=== PATIENT | female | born 1970 | race Caucasian/White ===

== ENCOUNTER 2017-05-11 15:41 | Emergency (ER) | payer MEDICAID ==
[~2017-05-11] VITALS: Ht 167.6 cm; Wt 61.2 kg
[~2017-05-11 15:41] MED LIST: BUS10T PO
[2017-05-11 16:53] VITALS: BP 124/64
== END 2017-05-11 17:00 | disposition home or self-care (01) ==
LOC: ER 15:42
DX: M67.432 Ganglion, left wrist (principal); H60.91 Unspecified otitis externa, right ear

== ENCOUNTER 2017-08-21 20:18 | Emergency (ER) | payer MEDICAID ==
[~2017-08-21] VITALS: Ht 167.6 cm; Wt 59.0 kg
[2017-08-21 22:29] LABS: Eosinophils # (auto) 0.2 uL; Lymphocytes # (auto) 2.2 uL; Monocytes # (auto) 0.5 uL; White Blood Cell 6.1 10^3/uL (4.4-10.8)
[2017-08-21 22:31] LABS: Basophils # (auto) 0 uL; Basophils % (auto) 0.7 % (0.0-2.0); Eosinophils % (auto) 3.5 % (0.0-7.0); Hematocrit 33.8 % (36.0-46.0); Hemoglobin 11.5 g/dL (12.2-16.2); Lymphocytes % (auto) 36.3 % (10.0-50.0); Mean Corpuscular Hemoglobin 33.1 pg (28.0-32.0); Mean Corpuscular Hgb Conc. 33.9 g/dL (32.0-36.0); Mean Corpuscular Volume 97.7 fL (80.0-100.0); Mean Platelet Volume 7.6 fL (6.9-10.8); Monocytes % (auto) 7.7 % (0.0-12.0); Neutrophils # (auto) 3.2 uL; Neutrophils % (auto) 51.8 % (37.0-80.0); Nucleated Red Blood Cells % 0.1 %; Platelet Count (auto) 524 10^3/uL (140-450); Red Cell Distribution Width 13.8 % (11.8-14.3)
[2017-08-21 22:39] LABS: Albumin 3.4 g/dL (3.4-5.0); Anion Gap 7 (5-15); Aspartate Aminotransferase 25 U/L (15-37); BUN/Creatinine Ratio 7.1; Blood Urea Nitrogen 7 mg/dL (7-18); Calcium 8.8 mg/dL (8.5-10.1); Carbon Dioxide 21 mmol/L (21-32); Chloride 110 mmol/L (98-107); GFR African American 79 mL/min; GFR Non-African American 65 mL/min; Glucose 65 mg/dL (74-106); Potassium 3.7 mmol/L (3.5-5.1); Sodium 138 mmol/L (136-145)
[2017-08-21 22:43] LABS: Alkaline Phosphatase 115 U/L (45-117); Bilirubin, Total 0.2 mg/dL (0.2-1.0); Total Protein 7.8 g/dL (6.4-8.2)
[2017-08-22] MEDS ORDERED: SODIUM CHLORIDE 0.9% 1,000 ML IV ONE (09:35)
[2017-08-22] MEDS ORDERED: CLINDAMYCIN 600MG IV 50 ML IV ONE (09:45)
[2017-08-22] MEDS ORDERED: KETOROLAC TROMETH 30 MG/ML 1ML VIAL IV ONE (09:45)
[2017-08-22 12:58] VITALS: BP 103/66
== END 2017-08-22 13:29 | disposition home or self-care (01) ==
LOC: ER 20:18
DX: L03.115 Cellulitis of right lower limb (principal); F17.210 Nicotine dependence, cigarettes, uncomplicated; F15.10 Other stimulant abuse, uncomplicated; J44.9 Chronic obstructive pulmonary disease, unspecified; K21.9 Gastro-esophageal reflux disease without esophagitis; Z88.0 Allergy status to penicillin; Z98.51 Tubal ligation status
CPT/HCPCS: 36415; 73600; 80053; 83605; 84484; 85025; 87040; 94761; 96365; 96366; 96375; 99285; J1885; J3490; J7030

== ENCOUNTER 2017-08-28 11:10 | Emergency (ER) | payer MEDICAID ==
[~2017-08-28] VITALS: Ht 167.6 cm; Wt 61.2 kg
[2017-08-28 11:20] VITALS: BP 112/71
== END 2017-08-28 13:32 | disposition home or self-care (01) ==
LOC: ER 11:12
DX: S90.512D Abrasion, left ankle, subsequent encounter (principal); J44.9 Chronic obstructive pulmonary disease, unspecified; K21.9 Gastro-esophageal reflux disease without esophagitis; F17.210 Nicotine dependence, cigarettes, uncomplicated; X58.XXXD Exposure to other specified factors, subsequent encounter

== ENCOUNTER 2017-10-25 15:08 | Emergency (ER) | payer MEDICAID ==
[~2017-10-25] VITALS: Ht 167.6 cm; Wt 61.2 kg
[2017-10-25 19:39] VITALS: BP 126/88
== END 2017-10-25 20:02 | disposition home or self-care (01) ==
LOC: ER 15:08
DX: L03.211 Cellulitis of face (principal); T78.40XA Allergy, unspecified, initial encounter; X58.XXXA Exposure to other specified factors, initial encounter; F17.210 Nicotine dependence, cigarettes, uncomplicated; K21.9 Gastro-esophageal reflux disease without esophagitis; J44.9 Chronic obstructive pulmonary disease, unspecified; Z88.0 Allergy status to penicillin

== ENCOUNTER 2017-10-28 23:31 | Emergency (ER) | payer MEDICAID ==
[~2017-10-28] VITALS: Ht 167.6 cm; Wt 61.2 kg
[2017-10-28 23:52] VITALS: BP 106/64
[2017-10-29] MEDS ORDERED: KETOROLAC TROMETH 60MG/2ML VIAL IM ONE (04:45)
== END 2017-10-29 04:56 | disposition home or self-care (01) ==
LOC: ER 23:31
DX: S33.5XXA Sprain of ligaments of lumbar spine, initial encounter (principal); M54.16 Radiculopathy, lumbar region; X50.0XXA Overexertion from strenuous movement or load, initial encounter; Y93.89 Activity, other specified; Y92.89 Other specified places as the place of occurrence of the external cause; Y99.8 Other external cause status
CPT/HCPCS: 72100; 96372; 99284; J1885

== ENCOUNTER 2017-10-31 13:52 | Emergency (ER) | payer MEDICAID ==
[~2017-10-31] VITALS: Ht 167.6 cm; Wt 61.2 kg
[2017-10-31 17:37] VITALS: BP 119/74
== END 2017-10-31 21:34 | disposition home or self-care (01) ==
LOC: ER 13:52
DX: H10.9 Unspecified conjunctivitis (principal); J44.9 Chronic obstructive pulmonary disease, unspecified; K21.9 Gastro-esophageal reflux disease without esophagitis; F17.210 Nicotine dependence, cigarettes, uncomplicated; F15.10 Other stimulant abuse, uncomplicated; Z98.51 Tubal ligation status; Z88.0 Allergy status to penicillin

== ENCOUNTER 2017-11-07 14:03 | Inpatient (IN) | payer MEDICAID ==
[~2017-11-07] VITALS: Ht 165.1 cm; Wt 66.5 kg
[2017-11-07 15:03] LABS: Albumin 3.3 g/dL (3.4-5.0); Calcium 8.8 mg/dL (8.5-10.1)
[2017-11-07 15:07] LABS: Bilirubin, Total 0.2 mg/dL (0.2-1.0); Potassium 3.7 mmol/L (3.5-5.1); Total Protein 7.2 g/dL (6.4-8.2)
[2017-11-07 15:08] LABS: Basophils # (auto) 0 uL; Eosinophils # (auto) 0 uL; Eosinophils % (auto) 0.2 % (0.0-7.0); Nucleated Red Blood Cells % 0.2 %; White Blood Cell 10.7 10^3/uL (4.4-10.8)
[2017-11-07 15:09] LABS: Basophils % (auto) 0.3 % (0.0-2.0); Hematocrit 36.3 % (36.0-46.0); Hemoglobin 12.1 g/dL (12.2-16.2); Lymphocytes # (auto) 1.9 uL; Lymphocytes % (auto) 17.7 % (10.0-50.0); Mean Corpuscular Hemoglobin 33.5 pg (28.0-32.0); Mean Corpuscular Hgb Conc. 33.5 g/dL (32.0-36.0); Mean Corpuscular Volume 100.1 fL (80.0-100.0); Monocytes # (auto) 0.3 uL; Monocytes % (auto) 3.2 % (0.0-12.0); Neutrophils # (auto) 8.4 uL; Neutrophils % (auto) 78.6 % (37.0-80.0); Platelet Count (auto) 641 10^3/uL (140-450); Red Blood Cells 3.62 10^6/uL (4.0-5.20); Red Cell Distribution Width 14.9 % (11.8-14.3)
[2017-11-07 18:12] LABS: Urine Bacteria NONE SEEN /hpf (None Seen); Urine Blood Negative /uL (Negative); Urine Specific Gravity 1.003 (1.001-1.035); Urine WBC 1 /hpf (0 - 5)
[2017-11-07] MEDS ORDERED: ACETAMINOPHEN 325 MG TAB PO PRN (22:00)
[2017-11-07] MEDS ORDERED: TEMAZEPAM 15 MG CAP PO PRN (22:00)
[2017-11-07] MEDS ORDERED: HYDROcodone-ACET 5/325MG TAB PO PRN (22:00)
[2017-11-07] MEDS ORDERED: MORPHINE SULFATE 4 MG/ML SYR/VIAL IV PRN (22:00)
[2017-11-07] MEDS ORDERED: PANTOPRAZOLE 40 MG/10 ML VIAL IV ONE (22:00)
[2017-11-07] MEDS ORDERED: LEVOFLOXACIN 500MG 100 ML IV ONE (22:00)
[2017-11-07] MEDS ORDERED: SODIUM CHLORIDE 0.9% 1,000 ML IV SCH (22:00)
[2017-11-07] MEDS ORDERED: ONDANSETRON HCL 4 MG/2 ML VIAL IV PRN (22:00)
[2017-11-07] MEDS ORDERED: ALBUTEROL SULF 2.5 MG/0.5ML(0.5%) NEB SOLN NEB PRN (22:00)
[2017-11-07] MEDS ORDERED: SODIUM CHLORIDE 0.9% 500 ML IV ONE (22:00)
[2017-11-07 22:37] VITALS: BP 110/72
[2017-11-07 23:45] VITALS: BP 133/86
[2017-11-08] MEDS ORDERED: OMEP20CA74 PO (01:43)
[2017-11-08] MEDS ORDERED: GABA-339 PO (01:43)
[2017-11-08] MEDS ORDERED: DIPH25CA66 PO (01:44)
[2017-11-08] MEDS ORDERED: BUPR-40 PO (01:44)
[2017-11-08] MEDS ORDERED: LORA-654 PO (01:45)
[2017-11-08] MEDS ORDERED: ONDA4TAB5 PO (01:46)
[2017-11-08] MEDS ORDERED: BUSP5TAB51 PO (01:46)
[2017-11-08] MEDS ORDERED: MONT10TA34 PO (01:47)
[2017-11-08] MEDS ORDERED: IBUP100S11 PO (01:48)
[2017-11-08] MEDS ORDERED: ACET1SOL8 PO (01:48)
[2017-11-08] MEDS ORDERED: ETOD1TAB60 PO (01:49)
[2017-11-08] MEDS ORDERED: PRE5T PO (01:49)
[2017-11-08] MEDS ORDERED: MELA3TAB27 PO (01:50)
[2017-11-08] MEDS ORDERED: METH4TAB7 PO (01:50)
[2017-11-08 05:00] VITALS: BP 119/73
[2017-11-08 06:35] LABS: Basophils # (auto) 0.1 uL; Basophils % (auto) 0.8 % (0.0-2.0); Eosinophils # (auto) 0.2 uL; Hematocrit 35.3 % (36.0-46.0); Lymphocytes # (auto) 4.4 uL; Lymphocytes % (auto) 47.7 % (10.0-50.0); Mean Corpuscular Hemoglobin 33.9 pg (28.0-32.0); Mean Corpuscular Volume 99.8 fL (80.0-100.0); Monocytes # (auto) 0.7 uL; Monocytes % (auto) 7.3 % (0.0-12.0); Neutrophils # (auto) 3.9 uL; Neutrophils % (auto) 42.2 % (37.0-80.0); Nucleated Red Blood Cells % 0.1 %; Platelet Count (auto) 597 10^3/uL (140-450); Red Blood Cells 3.54 10^6/uL (4.0-5.20); Red Cell Distribution Width 14.8 % (11.8-14.3); White Blood Cell 9.2 10^3/uL (4.4-10.8)
[2017-11-08 06:53] LABS: Calcium 8.6 mg/dL (8.5-10.1)
[2017-11-08 06:56] LABS: BUN/Creatinine Ratio 10.3
[2017-11-08 06:58] LABS: Bilirubin, Total 0.3 mg/dL (0.2-1.0); Total Protein 6.7 g/dL (6.4-8.2)
[2017-11-08 08:20] VITALS: BP 119/81
[2017-11-08] MEDS ORDERED: PANTOPRAZOLE 40 MG/10 ML VIAL IV SCH (10:00)
[2017-11-08] MEDS ORDERED: ENOXAPARIN SOD 40 MG/0.4 ML SYRINGE SC SCH (10:00)
[2017-11-08 11:21] VITALS: BP 122/81
[2017-11-08] MEDS ORDERED: LEVOFLOXACIN 500MG 100 ML IV SCH (22:00)
== END 2017-11-08 12:34 | disposition left against medical advice (07) ==
LOC: ER 14:03 → OVERFLOW 14:04 → CENTRAL 23:15
PROVIDERS: ADMIT Nurse Practitioner; ATTEND Internal Medicine
DX: K80.01 Calculus of gallbladder with acute cholecystitis with obstruction (principal); E44.1 Mild protein-calorie malnutrition; D64.9 Anemia, unspecified; F17.210 Nicotine dependence, cigarettes, uncomplicated; F41.9 Anxiety disorder, unspecified; G89.29 Other chronic pain; J44.9 Chronic obstructive pulmonary disease, unspecified; K21.9 Gastro-esophageal reflux disease without esophagitis; Z53.21 Procedure and treatment not carried out due to patient leaving prior to being seen by health care provider; K83.8 Other specified diseases of biliary tract; D47.3 Essential (hemorrhagic) thrombocythemia; G47.00 Insomnia, unspecified; Z79.899 Other long term (current) drug therapy; Z82.49 Family history of ischemic heart disease and other diseases of the circulatory system; Z68.24 Body mass index [BMI] 24.0-24.9, adult; Z88.0 Allergy status to penicillin; E88.09 Other disorders of plasma-protein metabolism, not elsewhere classified
CPT/HCPCS: 36415; 76705; 78226; 80053; 81001; 85025; 87081; 96374; C9113; J1956

== ENCOUNTER 2017-11-30 21:34 | Emergency (ER) | payer MEDICAID ==
[~2017-11-30] VITALS: Ht 167.6 cm; Wt 61.2 kg
[~2017-11-30 21:34] MED LIST changes: +ACET1SOL8 PO; +BUPR-40 PO; -BUS10T PO; +BUSP5TAB51 PO; +DIPH25CA66 PO; +ETOD1TAB60 PO; +GABA-339 PO; +IBUP100S11 PO; +LORA-654 PO; +MELA3TAB27 PO; +METH4TAB7 PO; +MONT10TA34 PO; +OMEP20CA74 PO; +ONDA4TAB5 PO; +PRE5T PO
[2017-12-01] MEDS ORDERED: ONDANSETRON HCL 4 MG/2 ML VIAL IM ONE (02:30)
[2017-12-01] MEDS ORDERED: MORPHINE SULFATE 4 MG/ML SYR/VIAL IM ONE (02:30)
[2017-12-01 03:44] LABS: Urine Bacteria NONE SEEN /hpf (None Seen); Urine Blood Negative /uL (Negative); Urine Specific Gravity 1.002 (1.001-1.035); Urine WBC <1 /hpf (0 - 5)
[2017-12-01 03:56] LABS: Alcohol, Urine < 3.0 mg/dL (0-5); Amphetamine Screen, Urine NEGATIVE (NEGATIVE); Barbiturate Scree,Urine NEGATIVE (NEGATIVE); Benzodiazephine Screen, Urine NEGATIVE (NEGATIVE); Cannabinoid Screen, Urine NEGATIVE (NEGATIVE); Cocaine Screen, Urine NEGATIVE (NEGATIVE); Opiate Scree,Urine NEGATIVE (NEGATIVE); Phencyclidine Screen, Urine NEGATIVE (NEGATIVE)
[2017-12-01 05:23] VITALS: BP 126/83
== END 2017-12-01 05:27 | disposition home or self-care (01) ==
LOC: ER 21:34
DX: S33.5XXA Sprain of ligaments of lumbar spine, initial encounter (principal); M54.16 Radiculopathy, lumbar region; K21.9 Gastro-esophageal reflux disease without esophagitis; J44.9 Chronic obstructive pulmonary disease, unspecified; F17.210 Nicotine dependence, cigarettes, uncomplicated; Z98.51 Tubal ligation status; Z88.0 Allergy status to penicillin; Z79.899 Other long term (current) drug therapy; X58.XXXA Exposure to other specified factors, initial encounter; Y93.89 Activity, other specified; Y92.89 Other specified places as the place of occurrence of the external cause; Y99.8 Other external cause status
CPT/HCPCS: 80307; 81001; 96372; 99284; J2270; J2405

== ENCOUNTER 2018-01-08 02:35 | Emergency (ER) | payer MEDICAID, OTHER ==
[~2018-01-08] VITALS: Ht 167.6 cm; Wt 59.0 kg
[2018-01-08 04:29] LABS: Eosinophils # (auto) 0.1 uL; Hemoglobin 13.9 g/dL (12.2-16.2); Lymphocytes # (auto) 2.6 uL; Monocytes # (auto) 0.5 uL
[2018-01-08 04:31] LABS: Basophils # (auto) 0.1 uL; Basophils % (auto) 1.2 % (0.0-2.0); Eosinophils % (auto) 2.1 % (0.0-7.0); Hematocrit 41.2 % (36.0-46.0); Lymphocytes % (auto) 40.3 % (10.0-50.0); Mean Corpuscular Hemoglobin 32.5 pg (28.0-32.0); Mean Corpuscular Hgb Conc. 33.7 g/dL (32.0-36.0); Mean Corpuscular Volume 96.4 fL (80.0-100.0); Monocytes % (auto) 7.3 % (0.0-12.0); Neutrophils # (auto) 3.2 uL; Neutrophils % (auto) 49.1 % (37.0-80.0); Platelet Count (auto) 517 10^3/uL (140-450); Red Blood Cells 4.27 10^6/uL (4.0-5.20); Red Cell Distribution Width 14.1 % (11.8-14.3); White Blood Cell 6.6 10^3/uL (4.4-10.8)
[2018-01-08 04:40] LABS: Albumin 3.7 g/dL (3.4-5.0); BUN/Creatinine Ratio 7.9; Calcium 11.2 mg/dL (8.5-10.1); Potassium 3.7 mmol/L (3.5-5.1)
[2018-01-08 04:43] LABS: Bilirubin, Total 0.2 mg/dL (0.2-1.0); Total Protein 8.3 g/dL (6.4-8.2)
[2018-01-08] MEDS ORDERED: ONDANSETRON ODT 4 MG TAB PO ONE (06:45)
[2018-01-08] MEDS ORDERED: FAMOTIDINE 20 MG TAB PO ONE (07:00)
[2018-01-08 07:14] VITALS: BP 119/78
== END 2018-01-08 07:18 | disposition home or self-care (01) ==
LOC: ER 02:35
DX: K21.9 Gastro-esophageal reflux disease without esophagitis (principal); F17.210 Nicotine dependence, cigarettes, uncomplicated; J44.9 Chronic obstructive pulmonary disease, unspecified; Z76.0 Encounter for issue of repeat prescription; Z88.0 Allergy status to penicillin
CPT/HCPCS: 36415; 80053; 81002; 85025; 99284; Q0162

== ENCOUNTER 2018-01-16 18:33 | Emergency (ER) | payer OTHER ==
[~2018-01-16] VITALS: Ht 167.6 cm; Wt 59.0 kg
[2018-01-16 18:49] VITALS: BP 94/70
== END 2018-01-16 21:57 | disposition home or self-care (01) ==
LOC: ER 18:33
DX: S63.612A Unspecified sprain of right middle finger, initial encounter (principal); F17.210 Nicotine dependence, cigarettes, uncomplicated; J44.9 Chronic obstructive pulmonary disease, unspecified; K21.9 Gastro-esophageal reflux disease without esophagitis; Z88.0 Allergy status to penicillin; X58.XXXA Exposure to other specified factors, initial encounter; Y93.89 Activity, other specified; Y92.89 Other specified places as the place of occurrence of the external cause; Y99.8 Other external cause status
CPT/HCPCS: 29130; 73140

== ENCOUNTER 2018-02-06 20:32 | Emergency (ER) | payer OTHER ==
[~2018-02-06] VITALS: Ht 167.6 cm; Wt 59.0 kg
[2018-02-06 20:42] VITALS: BP 111/70
== END 2018-02-07 00:19 | disposition home or self-care (01) ==
LOC: ER 20:32
DX: J40 Bronchitis, not specified as acute or chronic (principal); F17.210 Nicotine dependence, cigarettes, uncomplicated; F15.10 Other stimulant abuse, uncomplicated; K21.9 Gastro-esophageal reflux disease without esophagitis; Z98.51 Tubal ligation status
CPT/HCPCS: 71045

== ENCOUNTER 2018-02-28 00:21 | Emergency (ER) | payer OTHER ==
[~2018-02-28] VITALS: Ht 167.6 cm; Wt 59.0 kg
[2018-02-28 07:52] VITALS: BP 116/69
== END 2018-02-28 07:55 | disposition home or self-care (01) ==
LOC: ER 00:29
DX: N20.0 Calculus of kidney (principal); M25.551 Pain in right hip; J44.9 Chronic obstructive pulmonary disease, unspecified; K21.9 Gastro-esophageal reflux disease without esophagitis; R20.0 Anesthesia of skin; Z88.0 Allergy status to penicillin; Z79.899 Other long term (current) drug therapy; Z90.49 Acquired absence of other specified parts of digestive tract; Z98.51 Tubal ligation status; F17.210 Nicotine dependence, cigarettes, uncomplicated
CPT/HCPCS: 74176

== ENCOUNTER 2018-06-11 03:06 | Emergency (ER) | payer MEDICAID, OTHER ==
[~2018-06-11] VITALS: Ht 162.6 cm; Wt 36.3 kg
[2018-06-11 07:40] VITALS: BP 118/74
== END 2018-06-11 08:51 | disposition home or self-care (01) ==
LOC: EDBD 03:06 → ER 03:06
DX: F41.1 Generalized anxiety disorder (principal); F15.10 Other stimulant abuse, uncomplicated; J44.9 Chronic obstructive pulmonary disease, unspecified; K21.9 Gastro-esophageal reflux disease without esophagitis; Z90.49 Acquired absence of other specified parts of digestive tract
CPT/HCPCS: 93005

== ENCOUNTER 2024-10-08 20:17 | Emergency (ER) | payer MEDICAID ==
[~2024-10-08] VITALS: Ht 157.5 cm; Wt 55.0 kg
[~2024-10-08 20:17] MED LIST changes: +ACET1SOL11 PO; -ACET1SOL8 PO; -BUPR-40 PO; +BUPR150T8 PO; +LORA-1121 PO; -LORA-654 PO; -METH4TAB7 PO; +METH4TAB9 PO; +MONT-8 PO; -MONT10TA34 PO; +ONDA-144 PO; -ONDA4TAB5 PO
[2024-10-08 21:32] LABS: Basophils # (auto) 0.1 10 ^3/uL (0-0.2); Basophils % (auto) 1.2 % (0.0-2.0); Eosinophils # (auto) 0.1 10 ^3/uL (0-0.8); Eosinophils % (auto) 1.4 % (0.0-7.0); Hematocrit 38.9 % (36.0-46.0); Hemoglobin 12.9 g/dL (12.2-16.2); Lymphocytes # (auto) 1.7 10 ^3/uL (0.4-5.4); Lymphocytes % (auto) 27.2 % (10.0-50.0); Mean Corpuscular Hemoglobin 31.6 pg (28.0-32.0); Mean Corpuscular Hgb Conc. 33.3 g/dL (32.0-36.0); Monocytes # (auto) 0.5 10 ^3/uL (0-1.3); Monocytes % (auto) 7.5 % (0.0-12.0); Neutrophils # (auto) 3.9 10 ^3/uL (1.6-8.6); Neutrophils % (auto) 62.7 % (37.0-80.0); Platelet Count (auto) 542 10^3/uL (140-450); Red Blood Cells 4.09 10^6/uL (4.0-5.20); Red Cell Distribution Width 13.6 % (11.8-14.3); White Blood Cell 6.1 10^3/uL (4.4-10.8)
[2024-10-08 21:49] LABS: Chloride 101 mmol/L (98-107); Potassium 4.1 mmol/L (3.5-5.1)
[2024-10-08 21:50] LABS: Anion Gap 8 (5-15); Carbon Dioxide 26 mmol/L (20-31)
[2024-10-08 21:55] LABS: BUN/Creatinine Ratio 12.1 (10.0-20.0); Blood Urea Nitrogen 12 mg/dL (9-23); Lipase 30 U/L (12-53)
[2024-10-08 21:59] LABS: Glucose 73 mg/dL (74-106); Sodium 135 mmol/L (136-145)
[2024-10-08 22:34] LABS: Bilirubin, Total 0.6 mg/dL (0.2-1.0); Total Protein 7.9 g/dL (5.7-8.2)
--- NOTE | 2024-10-08 22:47 | DVH ---
Exam: CT CT AB PEL WO CON-NO ORAL OR IV History: abd pain Comparison Study: None available at time of dictation. Technique: Multidetector spiral CT of the abdomen was performed from lung bases to pubic symphysis. Imaging was performed without IV contrast. Axial, coronal and sagittal multiplanar reformats were ob tained from the axial data set by the technologist. Radiation Dose : 1. Abdomen/Pelvis: CTDIvol 5 mGy, DLP 236 mGy*cm. Findings: Evaluation of solid organs is limited due to lack of intravenous contrast use. Lung Bases: No acute or significant lung base finding. Normal heart size. No pleural or pericardial effusion. Liver: The liver is normal in size. No focal lesions. Gallbladder and Biliary Tree: Unremarkable Spleen: Unremarkable Pancreas: The pancreas is grossly normal in appearance. Adrenal Glands: Unremarkable Kidneys: Several bilateral nonobstructing stones measuring up to 5 mm. Bladder: There is a 7 mm stone in the left posterior urinary bladder. Bowel: The stomach is grossly normal in appearance. Small bowel and colon are normal in caliber and d istribution. The appendix is not visualized; however, no secondary findings of acute appendicitis id entified. Ascites: Absent Lymphadenopathy: No mesenteric, retroperitoneal or periportal lymphadenopathy. Abdominal Wall and Mesentery: Unremarkable. Vasculature: The visualized abdominal aorta is normal in size and caliber. Evaluation of abdominal a nd pelvic vessels is limited due to lack of intravenous contrast. Pelvic Organs: Unremarkable Musculoskeletal: Severe levoscoliosis of the thoracolumbar junction. Moderate to severe multilevel de generative disc disease from T12-L3. IMPRESSION: Several nonobstructing bilateral renal stones measuring up to 5 mm versus possible mild medullary selena cinosis 7 mm stone in the left posterior urinary bladder. Severe levoscoliosis of the thoracolumbar junction with associated degenerative disc disease in the l umbar spine. END IMPRESSION:
[2024-10-08 23:00] VITALS: RESP 20; O2SAT 98
[2024-10-08 23:05] VITALS: BP 132/85; TEMP 97.9
[2024-10-08] MEDS: HYDROcodone-ACET 10/325MG TAB PO ONE (23:09)
[2024-10-08] MEDS: ONDANSETRON ODT 4 MG TAB PO ONE (23:09)
[2024-10-09 00:17] VITALS: PULSE 98; RESP 18; O2SAT 96
--- NOTE | 2024-10-09 00:21 | ED.PDOC ---
History of Present Illness HPI Comments 54 y/o F presents with c/o non-radiating, left-sided abdominal pain, today. Patient endorses on sudden and unprovoked onset of mild pain, this morning, that worsened throughout the day. She comments on history of recent homelessness, GERD, COPD, kidney stones, pre-DM and polysubstance abuse. She comments on pain improving since arrival to ED and denies having any nausea, vomiting, diarrhea, or other associated symptoms or modifiers at this time. Chief Complaint: Abdominal Pain Time Seen by MD: 20:50 Primary Care Provider: CAIT Reviewed Notes: Nurses Notes, Medications, Allergies Allergies: Coded Allergies: Penicillins (Verified Allergy, Unknown, 02/24/18) Home Meds Reported Medications Melatonin (KP MELATONIN) 3 Mg Tab, PO, TAB 11/08/17 Methylprednisolone (Methylprednisolone) 4 Mg Tab, PO, MG 11/08/17 Prednisone (PREDNISONE) 5 Mg Tb, 10 MG PO DAILYP 11/08/17 Etodolac (Lodine) 400 Mg Tab, PO DAILY, TAB 11/08/17 Ibuprofen (Motrin) 100 Mg/5 Ml Ud, 800 MG PO Q6HPRN, #120 ML 11/08/17 Acetaminophen W/ Codeine (Tylenol W/Cod Elixir) 5 Ml So, 5 ML PO Q6HP PRN for MODERATE PAIN, ML 11/08/17 Montelukast Sodium (MONTELUKAST SODIUM) 10 Mg Tab, 5 MG PO DAILY, TAB 11/08/17 Ondansetron (Zofran) 4 Mg Tab, 4 MG PO DAILY, MG 11/08/17 Buspirone Hcl (Buspirone Hcl) 5 Mg Tab, 1 TAB PO TID, #60 TAB 2 Refills 11/08/17 Lorazepam (ATIVAN TABLET) 0.5 Mg Tb, 1 TAB PO BID, #90 TAB 11/08/17 Bupropion Hcl (Wellbutrin Sr) 150 Mg Tab, 20 MG PO BID, TAB 11/08/17 Diphenhydramine Hcl (Benadryl Allergy) 25 Mg Cap, 1 CAP PO BID, #30 CAP 1 Refill 11/08/17 Gabapentin (Gabapentin) 600 Mg Tab, 800 MG PO TID for 30 Days, MG 11/08/17 Omeprazole (PRILOSEC) 20 Mg Cap, 1 CAP PO DAILY, #90 CAP 1 Refill 11/08/17 Information Source: Patient Mode of Arrival: EMS Severity: Moderate Timing: Hours Duration: Since onset Prehospital treatment: 12 Lead EKG, Certified Registered Dental Assistant Past Medical History PAST MEDICAL HISTORY: Anxiety, COPD, DM (preDM), GERD, Kidney Stones Surgical History: BTL, Cholecystectomy MANAGER PROPOSAL History: Denies all MANAGER PROPOSAL Hx Family History Family History: No family hx of HTN Social History Smoker: Cigarettes, Other (vape) Alcohol: Occasionally Drugs: Marijuana, Methamphetamine Lives In: Homeless Gastrointestinal: reports: abdominal pain All Other Systems: Reviewed and Negative (negative unless otherwise stated above or in HPI) Physical Exam General Appearance: Moderate Distress, Normal HEENT: Normal ENT Inspection, Pharynx Normal, TMs Normal Neck: Full Range of Motion, Non-Tender, Normal, Normal Inspection Respiratory: Chest Non-Tender, Lungs Clear, No Accessory Muscle Use, No Respiratory Distress, Normal Breath Sounds Cardiovascular: No Edema, No JVD, No Murmur, No Gallop, Normal Peripheral Pulses, Regular Rate/Rhythm Breast Exam: Deferred Gastrointestinal: No Organomegaly, Non Tender, No Pulsatile Mass, Normal Bowel Sounds, Soft Genitalia: Deferred Pelvic: Deferred Rectal: Deferred Extremities: No calf tenderness, Normal capillary refill, Normal inspection, Normal range of motion, Non-tender, No pedal edema Musculoskeletal : Apperance: Normal Neurologic: Alert, commercial hvac service technician II-XII nml as Tested, No Motor Deficits, Normal Affect, Normal Mood, No Sensory Deficits Cerebellar Function: Normal Reflexes: Normal Skin: Dry, Normal Color, Warm Lymphatic: No Adenopathy Was a procedure done? Was a procedure done?: No Differential Dx Considerations may include: kidney stones, bladder stones, acute abdomen, GERD X-Ray, Labs, Meds, VS Vital Signs Date Time Temp Pulse Resp B/P (MAP) Pulse Ox O2 Delivery O2 Flow Rate FiO2 10/09/24 00:17 98 18 96 Room Air 10/08/24 23:05 97.9 98 18 132/85 (101) 96 97.9 10/08/24 23:00 20 98 Room Air* 0 21 10/08/24 20:25 98.1 94 16 131/78 (95) 98 Lab Test 10/08/24 21:15 Range/Units White Blood Count 6.1 4.4-10.8 10^3/uL Red Blood Count 4.09 4.0-5.20 10^6/uL Hemoglobin 12.9 12.2-16.2 g/dL Hematocrit 38.9 36.0-46.0 % Mean Corpuscular Volume 95.0 80.0-100.0 fL Mean Corpuscular Hemoglobin 31.6 28.0-32.0 pg Mean Corpuscular Hemoglobin Concent 33.3 32.0-36.0 g/dL Red Cell Distribution Width 13.6 11.8-14.3 % Platelet Count 542 H 140-450 10^3/uL Mean Platelet Volume 6.9 6.9-10.8 fL Neutrophils (%) (Auto) 62.7 37.0-80.0 % Lymphocytes (%) (Auto) 27.2 10.0-50.0 % Monocytes (%) (Auto) 7.5 0.0-12.0 % Eosinophils (%) (Auto) 1.4 0.0-7.0 % Basophils (%) (Auto) 1.2 0.0-2.0 % Neutrophils # (Auto) 3.9 1.6-8.6 10 ^3/uL Lymphocytes # (Auto) 1.7 0.4-5.4 10 ^3/uL Monocytes # (Auto) 0.5 0-1.3 10 ^3/uL Eosinophils # (Auto) 0.1 0-0.8 10 ^3/uL Basophils # (Auto) 0.1 0-0.2 10 ^3/uL Nucleated Red Blood Cells 0.0 % Sodium Level 135 L 136-145 mmol/L Potassium Level 4.1 3.5-5.1 mmol/L Chloride Level 101 98-107 mmol/L Carbon Dioxide Level 26 20-31 mmol/L Anion Gap 8 5-15 Blood Urea Nitrogen 12 9-23 mg/dL Creatinine 0.99 0.550-1.02 mg/dL Glomerular Filtration Rate Calc 68 >90 mL/min BUN/Creatinine Ratio 12.1 10.0-20.0 Serum Glucose 73 L 74-106 mg/dL Calcium Level 11.0 H 8.7-10.4 mg/dL Total Bilirubin 0.6 0.2-1.0 mg/dL Aspartate Amino Transferase (AST) 32 13-40 U/L Alanine Aminotransferase (ALT) 16 7-40 U/L Alkaline Phosphatase 135 H 46-116 U/L Total Protein 7.9 5.7-8.2 g/dL Albumin 5.0 H 3.2-4.8 g/dL Lipase 30 12-53 U/L Current Medications Medications (Trade) Dose Ordered Sig/Sixto Route Start Time Stop Time Status Last Admin Ondansetron HCl (Zofran Po) 4 mg ONCE ONCE PO 10/08/24 21:45 10/08/24 21:46 DC 10/08/24 23:09 Acetaminophen/ Hydrocodone Bitart ([place] 10/325MG Tab) 1 tab ONCE ONCE PO 10/08/24 23:00 10/08/24 23:01 DC 10/08/24 23:09 [place] [id number] Ph: [phone] DIAGNOSTIC IMAGING Diagnostic Imaging Report : [id number] Signed PATIENT: FELIX CARPIO ACCT: [id number] UNIT: [id number] : 1970 LOC: ER ROOM / BED: / AGE / SEX: 54 / F ADM STATUS: REG ER SERVICE 32 ORDERING PHYSICIAN: DAVID SANTIAGO MD PROCEDURE(s): ABPL - CT AB PEL WO CON-NO ORAL OR IV REASON: abd pain ORDER NUMBER(s): [id number], ACCESSION NUMBER(s): [id number] Exam: CT CT AB PEL WO CON-NO ORAL OR IV History: abd pain Comparison Study: None available at time of dictation. Technique: Multidetector spiral CT of the abdomen was performed from lung bases to pubic symphysis. Imaging was performed without IV contrast. Axial, coronal and sagittal multiplanar reformats were obtained from the axial data set by the technologist. Radiation Dose : 1. Abdomen/Pelvis: CTDIvol 5 mGy, DLP 236 mGy*cm. Findings: Evaluation of solid organs is limited due to lack of intravenous contrast use. Lung Bases: No acute or significant lung base finding. Normal heart size. No pleural or pericardial effusion. Liver: The liver is normal in size. No focal lesions. Gallbladder and Biliary Tree: Unremarkable Spleen: Unremarkable Pancreas: The pancreas is grossly normal in appearance. Adrenal Glands: Unremarkable Kidneys: Several bilateral nonobstructing stones measuring up to 5 mm. Bladder: There is a 7 mm stone in the left posterior urinary bladder. Bowel: The stomach is grossly normal in appearance. Small bowel and colon are normal in caliber and distribution. The appendix is not visualized; however, no secondary findings of acute appendicitis identified. Ascites: Absent Lymphadenopathy: No mesenteric, retroperitoneal or periportal lymphadenopathy. Abdominal Wall and Mesentery: Unremarkable. Vasculature: The visualized abdominal aorta is normal in size and caliber. Evaluation of abdominal and pelvic vessels is limited due to lack of intravenous contrast. Pelvic Organs: Unremarkable Musculoskeletal: Severe levoscoliosis of the thoracolumbar junction. Moderate to severe multilevel degenerative disc disease from T12-L3. IMPRESSION: Several nonobstructing bilateral renal stones measuring up to 5 mm versus possible mild medullary calcinosis 7 mm stone in the left posterior urinary bladder. Severe levoscoliosis of the thoracolumbar junction with associated degenerative disc disease in the lumbar spine. END IMPRESSION: ATED BY: CONSTANTINE HARRIS DO DICTATED DATE/TIME: 10/08/242243 SIGNED BY: CONSTANTINE HARRIS DO SIGNED DATE/TIME: 10/08/242243 CC: CBC and CMP were normal. Time of 1ST Reevaluation: 21:20 Reevaluation 1ST: Unchanged Patient Education/Counseling: Diagnosis, Treatment Family Education/Counseling: No Family Present Departure 1 Departure Time of Disposition: 00:20 Impression: Primary Impression: Bilateral kidney stones Additional Impression: Bladder stones Disposition: HOME / SELF CARE / HOMELESS Condition: Fair Additional Instructions: Continue on your medications. Do not drive when taking narcotics. Drink plenty of fluids. Follow up with your primary Dr. Take your prescriptions as ordered. If your condition becomes worse call and follow up with your primary Dr. for instructions or return to the ER if needed. Thank you for visiting [facility]. e-Prescriptions Hydrocodone-Acetaminophen (Hydrocodone Bitartrate/AC 10-325 mg) 1 Tab Tab 1 TAB PO QIDPRN, #20 TAB Prov: DAVID SANTIAGO MD 10/09/24 Critical Care Note Critical Care Time?: No Stability Stability form required: No Heart Score Heart Score: Heart Score Response (Comments) Value History N/A 0 EKG N/A 0 Age N/A 0 Risk Factors N/A 0 Troponin N/A 0 Total 0 I personally scribed for DAVID SANTIAGO MD ([email or web address]) on 10/09/24 at 00:21. Electronically submitted by Renny Jenkins ([email or web address]). I personally scribed for DAVID SANTIAGO MD ([email or web address]) on 10/09/24 at 00:22. Electronically submitted by Renny Jenkins ([email or web address]). I personally scribed for DAVID SANTIAGO MD ([email or web address]) on 10/09/24 at 00:30. Electronically submitted by Renny Jenkins ([email or web address]). DAVID SANTIAGO MD Oct 09, 2024 00:21
[2024-10-09] MEDS ORDERED: HYDR-4798 PO (00:36)
== END 2024-10-09 00:33 | disposition home or self-care (01) ==
LOC: EDBD 20:17 → ER 20:17
DX: N20.0 Calculus of kidney (principal); N21.0 Calculus in bladder; J44.9 Chronic obstructive pulmonary disease, unspecified; E11.9 Type 2 diabetes mellitus without complications; K21.9 Gastro-esophageal reflux disease without esophagitis; F17.210 Nicotine dependence, cigarettes, uncomplicated; F12.90 Cannabis use, unspecified, uncomplicated; F15.90 Other stimulant use, unspecified, uncomplicated; Z59.00 Homelessness unspecified; Z88.0 Allergy status to penicillin; Z79.899 Other long term (current) drug therapy; Z87.442 Personal history of urinary calculi; Z90.89 Acquired absence of other organs; Z90.49 Acquired absence of other specified parts of digestive tract
CPT/HCPCS: 36415; 74176; 80048; 82040; 82247; 83690; 84075; 84155; 84450; 84460; 85025; 99284; Q0162